=== PATIENT | female | born 1950 | race Caucasian/White ===

== ENCOUNTER → 2018-02-07 | Outpatient (CLI) | payer OTHER | LOC: CIMAGING 11:46 | PROVIDERS: ATTEND Nurse Practitioner | DX: M25.512 Pain in left shoulder (principal); M79.672 Pain in left foot; M19.012 Primary osteoarthritis, left shoulder; M75.32 Calcific tendinitis of left shoulder | CPT/HCPCS: 73030-PO; 73630-PO ==

== ENCOUNTER → 2018-08-02 | Outpatient (CLI) | payer OTHER | LOC: FIMAGING 14:14 | PROVIDERS: ATTEND Nurse Practitioner | DX: Z12.31 Encounter for screening mammogram for malignant neoplasm of breast (principal); Z13.820 Encounter for screening for osteoporosis; E28.39 Other primary ovarian failure; I10 Essential (primary) hypertension; Z78.0 Asymptomatic menopausal state; Z85.3 Personal history of malignant neoplasm of breast ==